=== PATIENT | female | born 1990 | race Caucasian/White ===

== ENCOUNTER 2018-07-10 20:23 | Inpatient (IN) | payer MEDICARE ==
[~2018-07-10] VITALS: Ht 160 cm; Wt 92.8 kg
[2018-07-10] MEDS ORDERED: LEVOFLOXACIN 750MG/DEXTROSE PREMIX BAG 150ML IV ONE (22:00)
[2018-07-10] MEDS ORDERED: PROMETHAZINE HCL (IM) 25 MG/ML VIAL IM ONE (22:00)
[2018-07-10] MEDS ORDERED: MORPHINE SULFATE INJ 4 MG/ML INJ IV ONE (22:00)
[2018-07-10] MEDS ORDERED: SODIUM CHLORIDE 0.9% 1000ML 1,000 ML ONE (22:00)
[2018-07-10] MEDS ORDERED: ALBUTEROL SULF 0.083% NEB SOLN 3 ML NEB NEB ONE (22:15)
[2018-07-10] MEDS ORDERED: MORPHINE SULFATE INJ 10 MG/ML IM ONE (22:45)
--- NOTE | 2018-07-10 23:38 | Diagnostic Imaging Report ---
EXAM: CT Chest WITHOUT contrast 07/10/2018 10:30 PM INDICATION: Shortness of breath, chest pain for one week COMPARISON: None TECHNIQUE: Chest was scanned utilizing a multidetector helical scanner from the lung apex through the level of the adrenal glands without administration of IV contrast. Absence of intravenous contrast decreases sensitivity for detection of lymphadenopathy and vascular pathology. Coronal and sagittal reformations were obtained. Routine protocol was performed. IV CONTRAST: None RADIATION DOSE: Total DLP: 629.63 mGy*cm Estimated effective dose: (DLP x 0.014 x size factor) mSv COMPLICATIONS: None FINDINGS: LINES/ TUBES: None. LUNGS AND AIRWAYS: The lungs are unremarkable. Airways are normal. PLEURA: The pleural spaces are clear. HEART AND MEDIASTINUM: The thyroid gland is normal. No mediastinal, hilar or axillary lymphadenopathy. The heart is normal in size.. There is no pericardial effusion. UPPER ABDOMEN: Limited non-contrast views of the upper abdomen show no abnormality within the visualized liver, spleen, pancreas, or kidneys. The adrenal glands are normal. Cholecystectomy clips are present BONES: The visualized bony thorax is within normal limits. SOFT TISSUES: Unremarkable. IMPRESSION: 1. No evidence of acute thoracic abnormality. 2. The lungs are clear. Signed by: Dr. Sebastián Aguilar M.D. on 07/10/2018 11:34 PM
[2018-07-11] VITALS (8 sets, daily range): BP systolic 98–126; BP diastolic 58–80
--- NOTE | 2018-07-11 00:32 | Diagnostic Imaging Report ---
EXAMINATION: CHEST SINGLE (PORTABLE) INDICATION: Chest pain COMPARISON: CT of the chest without contrast on 07/10/2018 FINDINGS: TUBES and LINES: Interval placement of left subclavian central line catheter with distal catheter tip at the level of the origin of the SVC. LUNGS: Lungs are well inflated. Lungs are clear. There is no evidence of pneumonia or pulmonary edema. PLEURA: No pleural effusion or pneumothorax. HEART AND MEDIASTINUM: The cardiomediastinal silhouette is unremarkable. BONES AND SOFT TISSUES: No acute osseous lesion. Soft tissues are unremarkable. UPPER ABDOMEN: No free air under the diaphragm. IMPRESSION: No acute thoracic abnormality. Signed by: Dr. Sebastián Aguilar M.D. on 07/11/2018 12:28 AM
[2018-07-11] MEDS: LEVOFLOXACIN 750MG/DEXTROSE PREMIX BAG 150ML IV SCH (01:45)
[2018-07-11] MEDS ORDERED: MORPHINE SULFATE 2 MG/ML SYR IV STA (01:46)
[2018-07-11] MEDS: ALBUTEROL SULF 0.083% NEB SOLN 3 ML NEB NEB SCH ×3 (02:30→18:50)
[2018-07-11] MEDS: SODIUM CHLORIDE 0.9% 1000ML 1,000 ML IV SCH ×3 (05:41→17:36)
[2018-07-11] MEDS: NYSTATIN SUSPENSION 5 ML UDC PO SCH ×3 (06:54→18:11)
[2018-07-11] MEDS: MORPHINE SULFATE 2 MG/ML SYR IV PRN ×3 (08:00→15:25)
[2018-07-11] MEDS: FLUCONAZOLE 100 MG TAB PO SCH (09:20)
[2018-07-11] MEDS: MORPHINE SULFATE INJ 4 MG/ML INJ IV PRN ×2 (18:40→21:40)
[2018-07-12] VITALS (8 sets, daily range): BP systolic 101–128; BP diastolic 57–76
[2018-07-12] MEDS: LEVOFLOXACIN 750MG/DEXTROSE PREMIX BAG 150ML IV SCH (00:44)
[2018-07-12] MEDS: MORPHINE SULFATE INJ 4 MG/ML INJ IV PRN ×6 (00:44→16:04)
[2018-07-12] MEDS: ALBUTEROL SULF 0.083% NEB SOLN 3 ML NEB NEB SCH ×2 (01:02→08:30)
[2018-07-12] MEDS: SODIUM CHLORIDE 0.9% 1000ML 1,000 ML IV SCH ×3 (01:36→17:36)
[2018-07-12] MEDS: NYSTATIN SUSPENSION 5 ML UDC PO SCH ×4 (05:47→16:13)
[2018-07-12 06:37] LABS: EOSINOPHILS # (AUTO) 0.3 (0.0-0.4); EOSINOPHILS % 7.8 % (0.0-6.0); HEMATOCRIT 24.3 % (34.2-44.1); LYMPHOCYTES # (AUTO) 0.6 (1.0-3.2); MEAN CORPUSCULAR HGB CONC 32.5 g/dL (31-35); MEAN CORPUSCULAR VOLUME 82.9 fL (81-99); MONOCYTES # (AUTO) 0.4 (0.2-0.8); MONOCYTES % 9.8 % (4.4-11.3); NEUTROPHILS # (AUTO) 2.3 (2.1-6.9); NEUTROPHILS % 64.4 % (38.7-80.0); PLATELET COUNT 144 x10e3/uL (140-360); RED BLOOD COUNT 2.93 x10e6/uL (3.6-5.1); RED CELL DISTRIBUTION WIDTH 15.9 % (11.7-14.4)
[2018-07-12 06:40] LABS: HEMOGLOBIN 7.9 g/dL (12.0-16.0)
[2018-07-12 07:03] LABS: ALANINE AMINOTRANSFERASE 112 IU/L (0-55); ALBUMIN 2.5 g/dL (3.5-5.0); ALBUMIN/GLOBULIN RATIO 0.8 (0.8-2.0); ALKALINE PHOSPHATASE 187 IU/L (40-150); ANION GAP 9.6 mmol/L (8-16); BLOOD UREA NITROGEN 5 mg/dL (7-26); BUN/CREATININE RATIO 8 (6-25); CALCIUM 7.7 mg/dL (8.4-10.2); CARBON DIOXIDE 17 mmol/L (22-29); CHLORIDE 112 mmol/L (98-107); CREATININE, SERUM 0.61 mg/dL (0.57-1.11); EST GLOMERULAR FILTRATION RATE > 60 ML/MIN (60-); GLUCOSE 98 mg/dL (74-118); POTASSIUM 3.6 mmol/L (3.5-5.1); SODIUM 135 mmol/L (136-145)
[2018-07-12] MEDS: FLUCONAZOLE 100 MG TAB PO SCH (08:14)
[2018-07-12] MEDS: PANTOPRAZOLE SOD 40 MG TABEC PO SCH (08:14)
[2018-07-12 09:36] LABS: BASOPHILS % 0.3 % (0.0-1.0); EOSINOPHILS # (AUTO) 0.2 (0.0-0.4); EOSINOPHILS % 7.6 % (0.0-6.0); HEMATOCRIT 24.9 % (34.2-44.1); LYMPHOCYTES # (AUTO) 0.6 (1.0-3.2); LYMPHOCYTES % 19.6 % (18.0-39.1); MEAN CORPUSCULAR HEMOGLOBIN 26.5 pg (28-32); MEAN CORPUSCULAR HGB CONC 32.1 g/dL (31-35); MEAN CORPUSCULAR VOLUME 82.5 fL (81-99); MONOCYTES # (AUTO) 0.1 (0.2-0.8); MONOCYTES % 4.3 % (4.4-11.3); NEUTROPHILS % 66.2 % (38.7-80.0); PLATELET COUNT 143 x10e3/uL (140-360); RED BLOOD COUNT 3.02 x10e6/uL (3.6-5.1); RED CELL DISTRIBUTION WIDTH 15.9 % (11.7-14.4)
--- NOTE | 2018-07-12 09:39 | Diagnostic Imaging Report ---
PROCEDURE:US LIVER COMPARISON:None. INDICATIONS:ELEVATED LFT'S TECHNIQUE: Munoz-scale and color Doppler transverse and longitudinal images of the right upper quadrant of the abdomen were obtained. FINDINGS: Liver: Measures 17.4 cm in right mid-clavicular line. Slight increased echogenicity. No masses. Main portal vein: Measures 1.3 cm with normal forward flow Gallbladder: Removed Common Bile Duct: Measures 0.4 cm Sonographic Winters's sign: Negative Right kidney: Measures 11.6 x 4.6 x 5.1 cm. Normal echogenicity. No solid masses or hydronephrosis. Pancreas: The visualized portions are unremarkable. Limited evaluation of the pancreatic tail. Inferior vena cava: Patent Aorta: Limited evaluation due to overlying bowel gas. Ascites: Minimal amount of fluid within the gallbladder fossa. CONCLUSION: Prominent liver with increased echogenicity. Isaiah Johnson D.O. Dictated by: Isaiah Johnson D.O. on 07/12/2018 at 8:20 Electronically approved by: Isaiah Johnson D.O. on 07/12/2018 at 8:20
[2018-07-12 09:53] LABS: ANION GAP 10.2 mmol/L (8-16); BLOOD UREA NITROGEN < 5 mg/dL (7-26); CALCIUM 7.8 mg/dL (8.4-10.2); CARBON DIOXIDE 16 mmol/L (22-29); CHLORIDE 113 mmol/L (98-107); CREATININE, SERUM 0.63 mg/dL (0.57-1.11); EST GLOMERULAR FILTRATION RATE > 60 ML/MIN (60-); GLUCOSE 140 mg/dL (74-118); MAGNESIUM 1.5 MG/DL (1.3-2.1); POTASSIUM 3.2 mmol/L (3.5-5.1); SODIUM 136 mmol/L (136-145)
[2018-07-12 09:55] LABS: BUN/CREATININE RATIO 8 (6-25)
[2018-07-12] MEDS ORDERED: BISACODYL 5 MG TAB EC PO NR (14:00)
[2018-07-12] MEDS: LEVALBUTEROL HCL SOLN NEBU 1.25 MG/3 ML NEB INH SCH ×2 (14:00→19:25)
[2018-07-12] MEDS ORDERED: POTASSIUM CHLORIDE 20 MEQ TAB CR PO ONE (20:00)
[2018-07-12] MEDS: DOCUSATE SODIUM 100 MG CAP PO SCH (21:00)
--- NOTE | 2018-07-12 21:00 | Consultation ---
DATE OF CONSULTATION: REASON FOR CONSULTATION: HIV, recommendation of antibiotic, elevated liver enzymes. HISTORY: This patient who is very pleasant 28-year-old female who has HIV for the last 9 to 10 years. She is followed by [facility]. She is taking Stribild now. The patient for last 4 months. Also, she is taking Bactrim and azithromycin. Apparently, she had PCP pneumonia couple of years ago. She is followed as mentioned above with [facility]. The patient was doing well until recently when she started to have chest pain, substernal, not feeling well. The patient has had some cough, was not doing well. Patient came to the emergency room to be evaluated. Patient was admitted. Infectious disease was consulted. PAST MEDICAL HISTORY: HIV, obesity, PCP pneumonia. PAST SURGICAL HISTORY: She denies. ALLERGIES: NKA. SOCIAL HISTORY: There is no smoking, drug abuse, alcohol abuse. FAMILY HISTORY: Denies. REVIEW OF SYSTEMS: HEENT: Negative. PULMONARY: Some dry cough, minimum. : Negative. GI: Negative. SKIN: There is no rash. JOINT: Negative. LABORATORY DATA: Blood culture is negative. Her white count is 3.01, hemoglobin 8.0, hematocrit of 24, platelets 143,000. Sodium 135, potassium 3.6, creatinine of 0.61. AST of 136, ALT 112, amylase 42. She had CT of the chest which was negative. She had liver ultrasound which was unremarkable. PHYSICAL EXAMINATION: GENERAL: She is currently alert and oriented, does not seem to be in acute distress. VITALS: Stable, afebrile. HEENT: Normocephalic. NECK: Supple. CHEST: Clear bilaterally. HEART: S1 and S2, no murmur. ABDOMEN: Soft, obese. No tenderness. EXTREMITIES: No edema. SKIN: No rash. IMPRESSION: Elevated liver enzymes. Hepatitis, rule out viral. Patient does have cat. Will check for Cytomegalovirus, Praveen-[place] virus, toxoplasmosis, hepatitis A, B, and C, rapid plasma reagin. Will obtain CD4 cell count. Continue her antiretroviral medication. Discussed with the patient at length. Will follow with you. Job#: [id number]
[2018-07-12] MEDS: TRAMADOL HCL 50 MG TAB PO PRN (21:40)
[2018-07-12] MEDS: ACETAMINOPHEN 325 MG TAB PO PRN (21:41)
[2018-07-13] VITALS (8 sets, daily range): BP systolic 110–151; BP diastolic 56–70
[2018-07-13] MEDS: LEVALBUTEROL HCL SOLN NEBU 1.25 MG/3 ML NEB INH SCH ×4 (01:07→19:40)
[2018-07-13] MEDS: SODIUM CHLORIDE 0.9% 1000ML 1,000 ML IV SCH (01:36)
[2018-07-13] MEDS: TRAMADOL HCL 50 MG TAB PO PRN ×3 (04:50→17:55)
[2018-07-13 05:20] LABS: BASOPHILS % 0.4 % (0.0-1.0); EOSINOPHILS # (AUTO) 0.3 (0.0-0.4); EOSINOPHILS % 10.9 % (0.0-6.0); HEMATOCRIT 23.6 % (34.2-44.1); HEMOGLOBIN 7.6 g/dL (12.0-16.0); LYMPHOCYTES # (AUTO) 0.5 (1.0-3.2); LYMPHOCYTES % 15.8 % (18.0-39.1); MEAN CORPUSCULAR HGB CONC 32.2 g/dL (31-35); MEAN CORPUSCULAR VOLUME 83.7 fL (81-99); MONOCYTES # (AUTO) 0.2 (0.2-0.8); MONOCYTES % 7.7 % (4.4-11.3); NEUTROPHILS # (AUTO) 1.8 (2.1-6.9); NEUTROPHILS % 63.4 % (38.7-80.0); PLATELET COUNT 153 x10e3/uL (140-360); RED BLOOD COUNT 2.82 x10e6/uL (3.6-5.1)
[2018-07-13 05:35] LABS: ANION GAP 11.5 mmol/L (8-16); BLOOD UREA NITROGEN < 5 mg/dL (7-26); CALCIUM 8.2 mg/dL (8.4-10.2); CARBON DIOXIDE 17 mmol/L (22-29); CHLORIDE 115 mmol/L (98-107); CREATININE, SERUM 0.59 mg/dL (0.57-1.11); EST GLOMERULAR FILTRATION RATE > 60 ML/MIN (60-); GLUCOSE 106 mg/dL (74-118); POTASSIUM 3.5 mmol/L (3.5-5.1); SODIUM 140 mmol/L (136-145)
[2018-07-13 05:36] LABS: BUN/CREATININE RATIO 8 (6-25)
[2018-07-13] MEDS: NYSTATIN SUSPENSION 5 ML UDC PO SCH ×5 (06:00→23:02)
[2018-07-13] MEDS: PANTOPRAZOLE SOD 40 MG TABEC PO SCH (08:17)
[2018-07-13] MEDS: ONDANSETRON HCL 4 MG ORAL DISINTEGRATING TAB PO PRN (18:18)
[2018-07-13] MEDS: DOCUSATE SODIUM 100 MG CAP PO SCH (20:51)
[2018-07-13] MEDS: ACETAMINOPHEN 325 MG TAB PO PRN (20:52)
[2018-07-14] VITALS: BP 111/67
[2018-07-14] MEDS: LEVALBUTEROL HCL SOLN NEBU 1.25 MG/3 ML NEB INH SCH ×4 (00:47→19:38)
[2018-07-14 04:00] VITALS: BP 105/61
[2018-07-14] MEDS: NYSTATIN SUSPENSION 5 ML UDC PO SCH ×4 (06:00→23:26)
[2018-07-14] MEDS: TRAMADOL HCL 50 MG TAB PO PRN ×3 (06:24→20:38)
[2018-07-14 06:46] LABS: BASOPHILS % 0.3 % (0.0-1.0); EOSINOPHILS # (AUTO) 0.4 (0.0-0.4); EOSINOPHILS % 12.1 % (0.0-6.0); HEMOGLOBIN 8.1 g/dL (12.0-16.0); LYMPHOCYTES # (AUTO) 0.4 (1.0-3.2); LYMPHOCYTES % 12.5 % (18.0-39.1); MEAN CORPUSCULAR HEMOGLOBIN 26.9 pg (28-32); MEAN CORPUSCULAR HGB CONC 32.4 g/dL (31-35); MEAN CORPUSCULAR VOLUME 83.1 fL (81-99); MONOCYTES # (AUTO) 0.3 (0.2-0.8); MONOCYTES % 8.2 % (4.4-11.3); NEUTROPHILS % 65.6 % (38.7-80.0); PLATELET COUNT 161 x10e3/uL (140-360); RED BLOOD COUNT 3.01 x10e6/uL (3.6-5.1); RED CELL DISTRIBUTION WIDTH 16.3 % (11.7-14.4)
[2018-07-14 06:47] LABS: ALANINE AMINOTRANSFERASE 88 IU/L (0-55); ALBUMIN 2.9 g/dL (3.5-5.0); ALBUMIN/GLOBULIN RATIO 0.9 (0.8-2.0); ALKALINE PHOSPHATASE 185 IU/L (40-150); ANION GAP 11.5 mmol/L (8-16); BLOOD UREA NITROGEN 5 mg/dL (7-26); BUN/CREATININE RATIO 7 (6-25); CARBON DIOXIDE 20 mmol/L (22-29); CHLORIDE 111 mmol/L (98-107); CREATININE, SERUM 0.69 mg/dL (0.57-1.11); EST GLOMERULAR FILTRATION RATE > 60 ML/MIN (60-); GLUCOSE 97 mg/dL (74-118); POTASSIUM 3.5 mmol/L (3.5-5.1); SODIUM 139 mmol/L (136-145)
[2018-07-14] MEDS ORDERED: POTASSIUM CHLORIDE 20 MEQ TAB CR PO STA (07:20)
[2018-07-14] MEDS ORDERED: POTASSIUM CHLORIDE 20 MEQ TAB CR PO ONE (07:35)
[2018-07-14] MEDS: PANTOPRAZOLE SOD 40 MG TABEC PO SCH (07:56)
[2018-07-14] MEDS: POLYETHYLENE GLYCOL 3350 17 GM PACK PO SCH (07:56)
[2018-07-14 08:00] VITALS: BP 144/77
[2018-07-14] MEDS ORDERED: DONNATAL/LIDOCAINE/MAALOX 30 ML SUSP PO PRN ×2 (08:00→10:30)
[2018-07-14] MEDS ORDERED: FLUCONAZOLE 100 MG TAB PO SCH (09:00)
[2018-07-14] MEDS ORDERED: FLUCONAZOLE 200 MG/100 ML 100 ML IV ONE ×2 (09:41→10:07)
[2018-07-14] MEDS: FLUCONAZOLE 400MG/200ML BAG 200 ML IV SCH (10:07)
[2018-07-14 12:00] VITALS: BP 138/84
[2018-07-14] MEDS: ONDANSETRON HCL 4 MG ORAL DISINTEGRATING TAB PO PRN (15:03)
[2018-07-14 16:00] VITALS: BP 127/98
[2018-07-14 20:00] VITALS: BP 108/55
[2018-07-14] MEDS: DOCUSATE SODIUM 100 MG CAP PO SCH (20:38)
[2018-07-14] MEDS ORDERED: BISACODYL 10 MG SUPP PR ONE (22:45)
[2018-07-15] VITALS: BP 108/64
[2018-07-15] MEDS: ACETAMINOPHEN 325 MG TAB PO PRN (00:29)
[2018-07-15 04:00] VITALS: BP 108/69
[2018-07-15 05:39] LABS: BASOPHILS % 0.3 % (0.0-1.0); EOSINOPHILS # (AUTO) 0.5 (0.0-0.4); HEMATOCRIT 26.5 % (34.2-44.1); HEMOGLOBIN 8.5 g/dL (12.0-16.0); LYMPHOCYTES # (AUTO) 0.5 (1.0-3.2); LYMPHOCYTES % 15.3 % (18.0-39.1); MEAN CORPUSCULAR HEMOGLOBIN 26.9 pg (28-32); MEAN CORPUSCULAR HGB CONC 32.1 g/dL (31-35); MEAN CORPUSCULAR VOLUME 83.9 fL (81-99); MONOCYTES # (AUTO) 0.3 (0.2-0.8); MONOCYTES % 9.3 % (4.4-11.3); NEUTROPHILS # (AUTO) 1.9 (2.1-6.9); NEUTROPHILS % 59.5 % (38.7-80.0); PLATELET COUNT 184 x10e3/uL (140-360); RED BLOOD COUNT 3.16 x10e6/uL (3.6-5.1); RED CELL DISTRIBUTION WIDTH 16.3 % (11.7-14.4)
[2018-07-15] MEDS: NYSTATIN SUSPENSION 5 ML UDC PO SCH ×3 (05:40→18:00)
[2018-07-15] MEDS: ONDANSETRON HCL 4 MG ORAL DISINTEGRATING TAB PO PRN (05:40)
[2018-07-15 05:59] LABS: ANION GAP 14.6 mmol/L (8-16); BLOOD UREA NITROGEN 5 mg/dL (7-26); BUN/CREATININE RATIO 8 (6-25); CALCIUM 8.8 mg/dL (8.4-10.2); CARBON DIOXIDE 18 mmol/L (22-29); CHLORIDE 108 mmol/L (98-107); CREATININE, SERUM 0.66 mg/dL (0.57-1.11); EST GLOMERULAR FILTRATION RATE > 60 ML/MIN (60-); GLUCOSE 88 mg/dL (74-118); POTASSIUM 3.6 mmol/L (3.5-5.1); SODIUM 137 mmol/L (136-145)
[2018-07-15] MEDS: LEVALBUTEROL HCL SOLN NEBU 1.25 MG/3 ML NEB INH SCH ×4 (07:00→19:50)
[2018-07-15] MEDS: PANTOPRAZOLE SOD 40 MG TABEC PO SCH (07:30)
[2018-07-15 07:48] VITALS: BP 115/64
[2018-07-15] MEDS: POLYETHYLENE GLYCOL 3350 17 GM PACK PO SCH (09:00)
[2018-07-15] MEDS: FLUCONAZOLE 400MG/200ML BAG 200 ML IV SCH (10:00)
[2018-07-15 11:13] VITALS: BP 123/66
[2018-07-15] MEDS: PANTOPRAZOL 40MG/SOD CHL 0.9% 50 ML IV SCH ×2 (13:30→21:25)
[2018-07-15] MEDS ORDERED: PANTOPRAZOLE 40 MG 10ML VIAL IV NR (13:30)
--- NOTE | 2018-07-15 13:37 | Operative Report ---
DATE OF PROCEDURE: REFERRING PHYSICIAN: Dr. Raul Fernandez. PROCEDURE PERFORMED: Esophagogastroduodenoscopy. INDICATIONS FOR ESOPHAGOGASTRODUODENOSCOPY: Upper abdominal pain, nausea and vomiting. MEDICATION: Patient was done under MAC. Please see anesthesiologist's note. PROCEDURE: With the patient in the left lateral decubitus position, the flexible fiberoptic Olympus gastroscope was introduced into the esophagus under direct visualization without any difficulty. The distal esophageal mucosa appeared ulcerated, and biopsies were obtained. The scope was then advanced with ease into the stomach. Mucosa overlying the antrum and the body revealed some diffuse erythema and low-grade edema, and biopsies were obtained and sent to stain for H. pylori. Pylorus appeared to be of normal contour and shape, was intubated with ease, and the scope was advanced all the way to the 2nd portion of the duodenum. The scope was then withdrawn slowly. Mucosa overlying the proximal 2nd portion and the duodenal bulb appeared to be within normal limits. The scope was then withdrawn back into the stomach and retroflexed, and the mucosa overlying the fundus and the cardia appeared to be within normal limits. The scope was then straightened out. The stomach was decompressed. The scope was subsequently withdrawn. Patient tolerated procedure well. IMPRESSION: 1. Ulcerated distal esophagus. Biopsies obtained. 2. Gastritis biopsied. Biopsies sent to stain for H. pylori. PLAN: Follow up histology. Initiate PPI drip. Start Reglan 10 mg IV piggyback every 6 hours. Job#: [id number] EV cc:RAUL FERNANDEZ MD
[2018-07-15] MEDS ORDERED: PANTOPRAZOLE 40 MG 10ML VIAL ONE (14:22)
[2018-07-15] MEDS ORDERED: FENTANYL CITRATE/PF 100MCG/2 ML INJ ONE ×2 (15:17→17:45)
[2018-07-15 15:57] VITALS: BP 119/64
[2018-07-15] MEDS ORDERED: MIDAZOLAM HCL 2 MG/2 ML VIAL ONE (17:45)
[2018-07-15] MEDS: METOCLOPRAMIDE HCL 10 MG/2ML VIAL IV SCH (18:00)
[2018-07-15] MEDS: TRAMADOL HCL 50 MG TAB PO PRN (18:38)
[2018-07-15 19:30] VITALS: BP 134/60
[2018-07-15] MEDS: DOCUSATE SODIUM 100 MG CAP PO SCH (21:00)
[2018-07-16] MEDS: METOCLOPRAMIDE HCL 10 MG/2ML VIAL IV SCH ×2 (00:18→06:01)
[2018-07-16] MEDS: NYSTATIN SUSPENSION 5 ML UDC PO SCH ×2 (00:18→06:01)
[2018-07-16 00:30] VITALS: BP 117/54
[2018-07-16] MEDS: LEVALBUTEROL HCL SOLN NEBU 1.25 MG/3 ML NEB INH SCH ×2 (01:45→07:00)
[2018-07-16] MEDS: PANTOPRAZOL 40MG/SOD CHL 0.9% 50 ML IV SCH ×2 (02:25→04:30)
[2018-07-16 04:30] VITALS: BP 104/55
[2018-07-16 04:47] VITALS: BP 117/54
[2018-07-16 08:00] VITALS: BP 100/61
== END 2018-07-16 09:45 | disposition home or self-care (01) | DRG 975 ==
LOC: FSED 20:23 → MED/SURG3 07-11 03:42
PROVIDERS: ADMIT Internal Medicine; ATTEND Internal Medicine
PROC: 0DB78ZX Excision of Stomach, Pylorus, Via Natural or Artificial Opening Endoscopic, Diagnostic (ICD-10-PCS; 2018-07-15)
PROC: 0DB58ZX Excision of Esophagus, Via Natural or Artificial Opening Endoscopic, Diagnostic (ICD-10-PCS; principal; 2018-07-15 12:55)
DX: B20 Human immunodeficiency virus [HIV] disease (principal); B37.81 Candidal esophagitis; J45.41 Moderate persistent asthma with (acute) exacerbation; J18.9 Pneumonia, unspecified organism; B59 Pneumocystosis; B37.0 Candidal stomatitis; K75.9 Inflammatory liver disease, unspecified; E66.9 Obesity, unspecified; Z68.36 Body mass index [BMI] 36.0-36.9, adult; K76.0 Fatty (change of) liver, not elsewhere classified; D72.819 Decreased white blood cell count, unspecified
CPT/HCPCS: 36415; 43239; 71045; 71250; 76705; 80048; 80053; 82150; 83735; 84702; 85025; 86361; 86592; 86644; 86645; 86663; 86664; 86665; 86777; 86778; 87040; 87070; 87205; 88305; 88312; 94640; 96361; 99284; J1450; J2250; J2270; J2550; J2765; J7030

== ENCOUNTER 2019-01-23 21:15 | Emergency (ER) | payer MEDICARE ==
[~2019-01-23] VITALS: Ht 160 cm; Wt 91.2 kg
[~2019-01-23 21:15] MED LIST: PANTOPRAZOLE SO40 MG PO; PHENERGAN SUPP25 MG RC; ZOFRAN ODT4 MG PO
--- OUTSIDE RECORDS SUMMARY | 2019-01-23 21:18 | XMS REPORT ---
Author Author Admin, [place] Organization [facility] [place] [address] [place] [address] Phone Allergies, Adverse Reactions, Alerts Allergy Name Reaction Description Start Date Severity Status Provider HYDROCODONE Itching, SOB, Vomittng Moderate Active James LANDIN Conditions or Problems Problem Name Problem Code Onset Date Status Entry Date Provider Comment Standard Description Annotate DEPRESSIVE DISORDER, UNSPECIFIED Active Tesha Dyer [facility] Immunization update V15.9 Active Josette Martin MD Unspecified personal history presenting hazards to health Vitamin D deficiency 268.9 Active Josette Martin MD Unspecified vitamin D deficiency 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 Daren Adam [employer] Pneumocystosis Vaccination for HPV V04.89 Active James LANDIN Need for prophylactic vaccination and inoculation against other viral diseases Completed 2007 HSV 054.9 Active James LANDIN Herpes simplex without mention of complication AIDS 042 Active James LANDIN Human immunodeficiency virus [HIV] disease 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 James LANDIN Borderline personality disorder Obesity 278.00 Active James KUHNP Obesity, unspecified OVER WEIGHT 278.00 Active James LANDIN Obesity, unspecified SCHIZOAFFECTIVE DISORDER 295.70 Active James LANDIN Schizoaffective disorder, unspecified PASSIVE SMOKE EXPOSURE E869.4 Active James LANDIN Accidental poisoning from second-hand tobacco smoke TOBACCO USE 305.1 Active James LANDIN Tobacco use disorder Disturbance, visual NOS 368.10 Inactive Dk Howard MD Subjective visual disturbance, unspecified Disturbance, visual NOS ICD-368.10 Inactive Dk Howard MD 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 Dk Howard MD COUGH ICD-786.2 Inactive Daren Adam [employer]ATION WORK[employer] OVERWEIGHT 278.02 Inactive James LANDIN Overweight THRUSH ICD-112.0 Inactive Daren Adam [employer]ATION WORKER[employer] Rule out CMV RETINITIS Resolved Dk Howard MD Chorioretinitis, unspecified COUGH 786.2 Resolved Daren Adam [employer]ATION WORKER-[employer] Cough THRUSH 112.0 Resolved Daren Adam NP-C Candidiasis of mouth Medication List Medication Instructions Start Date Stop Date Generic Name NDC Status Provider Patient Instruction DOXYCYCLINE HYCLATE 100 MG ORAL CAPSULE 1 by mouth twice a day for 14 days DOXYCYCLINE HYCLATE 84562222014 Active James KUHNP Active HYDROCORTISONE 2.5 % EXTERNAL CREAM apply to affected area twice a day HYDROCORTISONE 65754821669 Active James Guzman [facility] Active PROAIR HFA 108 (90 Base) MCG/ACT INHALATION AEROSOL SOLUTION 2 puffs every 4 - 6 hours as needed ALBUTEROL SULFATE 02228993487 Active James KUHNP Active AZITHROMYCIN 600 MG ORAL TABLET Take two tablets by mouth once weeky AZITHROMYCIN 38352107409 Active Josette Martin MD Active VALTREX 1 GM ORAL TABLET 1 pill daily for suppression of herpes VALACYCLOVIR HCL 77023094253 Active James KUHNP Active NICOTINE 21-14-7 MG/24HR TRANSDERMAL KIT NICOTINE 33962253309 Active Marli Marroquin Active CLOTRIMAZOLE-BETAMETHASONE 1-0.05 % EXTERNAL CREAM apply 2x per day for 2 weeks CLOTRIMAZOLE-BETAMETHASONE 45157754581 Active James KUHNP Active BACTRIM DS 800-160 MG ORAL TABLET Take one tablet by mouth once daily TRIMETHOPRIM-SULFAMETHOXAZOLE 99329294339 Active Josette Martin MD Active NEXIUM 40 MG ORAL CAPSULE DELAYED RELEASE 1 by mouth daily ESOMEPRAZOLE MAGNESIUM 97994995312 Active James Garciatrish [facility] Active STRIBILD 692-107-092-300 MG ORAL TABLET 1 By Mouth once a day with food [id number]-TENOF 28855136941 Active James Garciatrish [facility] Active BACTRIM DS 800-160 MG ORAL TABLET Take one tablet by mouth twice daily BACTRIM DS 800-160 MG ORAL TABLET 582883 TRIMETHOPRIM-SULFAMETHOXAZOLE Inactive VITAMIN D (ERGOCALCIFEROL) 30794 UNIT ORAL CAPSULE One tablet by mouth once per week for 12 weeks VITAMIN D (ERGOCALCIFEROL) 30546 UNIT ORAL CAPSULE 0582156 ERGOCALCIFEROL Inactive VALTREX 500 MG ORAL TABLET 1 pill By Mouth Every day (after finishing 1g Twice a Day dose) VALTREX 500 MG ORAL TABLET 106434 VALACYCLOVIR HCL Inactive GABAPENTIN 300 MG ORAL CAPSULE 1-2 By Mouth at bedtime As Needed GABAPENTIN 300 MG ORAL CAPSULE 764719 GABAPENTIN Inactive GEODON 40 MG ORAL CAPSULE 1 By Mouth Twice a Day GEODON 40 MG ORAL CAPSULE 476739 ZIPRASIDONE HCL Inactive LEXAPRO 10 MG ORAL TABLET 1/2 By Mouth Every Day X 1 week then 1 By Mouth Every Day LEXAPRO 10 MG ORAL TABLET 426028 ESCITALOPRAM OXALATE Inactive VALTREX 1 GM ORAL TABLET 1 by mouth Twice a Day for 10 days VALTREX 1 GM ORAL TABLET 725854 VALACYCLOVIR HCL Inactive CYCLOBENZAPRINE HCL 10 MG ORAL TABLET 1/2 or 1 By Mouth three times a day as needed for muscle spasm CYCLOBENZAPRINE HCL 10 MG ORAL TABLET 411907 CYCLOBENZAPRINE HCL Inactive FLUCONAZOLE 150 MG ORAL TABLET One tab By Mouth Every Day FLUCONAZOLE 150 MG ORAL TABLET 183905 FLUCONAZOLE Inactive AZITHROMYCIN 600 MG ORAL TABLET 2 tabs by mouth once per week AZITHROMYCIN 600 MG ORAL TABLET 293116 AZITHROMYCIN Inactive ACYCLOVIR 800 MG ORAL TABLET Take one tablet by mouth every 12 hours ACYCLOVIR 84444998790 No Longer Active Daren BURT Active BACTRIM DS 800-160 MG ORAL TABLET Take one tablet by mouth twice daily TRIMETHOPRIM-SULFAMETHOXAZOLE 95422629573 No Longer Active James LANDIN Active VITAMIN D (ERGOCALCIFEROL) 32733 UNIT ORAL CAPSULE One tablet by mouth once per week for 12 weeks ERGOCALCIFEROL 33023157190 No Longer Active James LANDIN Active VALTREX 500 MG ORAL TABLET 1 pill By Mouth Every day (after finishing 1g Twice a Day dose) VALACYCLOVIR HCL 42869048565 No Longer Active James LANDIN Active GABAPENTIN 300 MG ORAL CAPSULE 1-2 By Mouth at bedtime As Needed GABAPENTIN 91426174772 No Longer Active James LANDIN Active GEODON 40 MG ORAL CAPSULE 1 By Mouth Twice a Day ZIPRASIDONE HCL 42233604436 No Longer Active James LANDIN Active LEXAPRO 10 MG ORAL TABLET 1/2 By Mouth Every Day X 1 week then 1 By Mouth Every Day ESCITALOPRAM OXALATE 43714635413 No Longer Active James KUHNP Active VALTREX 1 GM ORAL TABLET 1 by mouth Twice a Day for 10 days VALACYCLOVIR HCL 95681010007 No Longer Active Daren BURT Active CYCLOBENZAPRINE HCL 10 MG ORAL TABLET 1/2 or 1 By Mouth three times a day as needed for muscle spasm CYCLOBENZAPRINE HCL 94534820066 No Longer [facility] FLU[facility]LE 150 MG ORAL TABLET One tab By Mouth Every Day FLUCONAZOLE 08619477984 No Longer [facility] AZITHROMYCIN 600 MG ORAL TABLET 2 tabs by mouth once per week AZITHROMYCIN 73136501328 No Longer [facility] Immunizations Vaccine Administration Date Value Standard Description influenza immunization (Flu Vax) has been administered given influenza virus vaccine, unspecified formulation influenza immunization (Flu Vax) has been administered given influenza virus vaccine, unspecified formulation pneumococcal immunization administered given elsewhere pneumococcal polysaccharide vaccine, 23 valent Diagnostic Results Date Name Value Unit Range Description Lab Report: CD4/CD8 Ratio Profile, Comp. Metabolic Panel (14), Lipid Tello ... - Chemistry thyroid stimulating hormone, serum 2.240 u[iU]/mL 0.450-4.500 Lab Report: CD4/CD8 Ratio Profile, Immature Cells, CD4/CD8 Ratio Profile ... - Chemistry very low density lipoproteins 65 mg/dL 5-40 Lab Report: CD4/CD8 Ratio Profile, Comp. Metabolic Panel (14), Lipid Tello ... - Chemistry hepatitis B surface antigen Negative Negative Lab Report: RNA, Real Time PCR (Graph) - Chemistry HIV-1 RNA (log 10) 2.279 osg36jdsy/mL Lab Report: CD4/CD8 Ratio Profile, Comp. Metabolic Panel (14), RNA, Real ... - Chemistry chloride, serum 100 mmol/L 96-106 Lab Report: CD4/CD8 Ratio Profile, Comp. Metabolic Panel (14), Lipid Tello ... - Microbiology hepatitis A antibody, total Positive Negative Lab Report: CD4/CD8 Ratio Profile, Comp. Metabolic Panel (14), RNA, Real ... - Chemistry urea nitrogen, blood 9 mg/dL 6-20 Lab Report: QuantiFERON TB Gold (In Tube), QuantiFERON In Tube - Hematology Quantiferon Gold TB blood test for tuberculosis screening Negative Negative Lab Report: CD4/CD8 Ratio Profile, Comp. Metabolic Panel (14), RNA, Real ... - Hematology mean corpuscular hemoglobin concentration, RBC 34.8 G/DL % 31.5-35.7 erythrocyte (RBC) count 4.34 X10E6/UL 10*6/mm3 3.77-5.28 Lab Report: CD4/CD8 Ratio Profile, Comp. Metabolic Panel (14), Lipid Tello ... - Serology hepatitis C antibody, serum <0.1 0.0-0.9 Lab Report: CD4/CD8 Ratio Profile, Comp. Metabolic Panel (14), RNA, Real ... - Chemistry absolute CD8 1450 162-344 8445/12/21 Absolute Neutrophils 5.5 X10E3/UL 10*3/uL 1.4-7.0 Lab Report: CD4/CD8 Ratio Profile, Immature Cells, CD4/CD8 Ratio Profile ... - Chemistry LDL cholesterol, serum 152 mg/dL 0-99 Lab Report: CD4/CD8 Ratio Profile, Comp. Metabolic Panel (14), RNA, Real ... - Chemistry urea nitrogen/creatinine ratio, serum 12 8-20 Internal Correspondence: Pre-Visit Planning: F/U 12/30/16@1PM-confirmed - CC care cylinder steamer #1, name [facility]-Matilde Rosas MD / ROSE Prasad FNP / ROSE Meraz FNP / ROSE Queen MD / Tiffany Toney MA Lab Report: CD4/CD8 Ratio Profile, Comp. Metabolic Panel (14), RNA, Real ... - Hematology mean corpuscular volume, RBC 84 fL 79-97 Lab Report: CD4/CD8 Ratio Profile, Immature Cells, CD4/CD8 Ratio Profile ... - Chemistry HDL cholesterol, serum 49 mg/dL >39 Lab Report: CD4/CD8 Ratio Profile, Comp. Metabolic Panel (14), RNA, Real ... - Hematology monocytes as percent of blood leukocytes 10 % Lab Report: CD4/CD8 Ratio Profile, Comp. Metabolic Panel (14), RNA, Real ... - Chemistry creatinine, serum 0.78 mg/dL 0.57-1.00 albumin/globulin ratio, serum 1.3 1.1-2.5 Lab Report: CD4/CD8 Ratio Profile, Immature Cells, CD4/CD8 Ratio Profile ... - Chemistry cholesterol, serum 266 mg/dL 100-199 Lab Report: CD4/CD8 Ratio Profile, Comp. Metabolic Panel (14), RNA, Real ... - Chemistry bilirubin, serum, total 0.8 mg/dL 0.0-1.2 Lab Report: CD4/CD8 Ratio Profile, Comp. Metabolic Panel (14), RNA, Real ... - Hematology Eosinophil Absolute Count 0.4 X10E3/UL 10*3/uL 0.0-0.4 Lab Report: CD4/CD8 Ratio Profile, Comp. Metabolic Panel (14), RNA, Real ... - Chemistry aspartate aminotransferase (SGOT), serum 40 U/L 0-40 Lab Report: CD4/CD8 Ratio Profile, Comp. Metabolic Panel (14), RNA, Real ... - Hematology red blood cell distribution width 14.9 % 12.3-15.4 leukocyte count, blood 8.8 X10E3/UL 10*3/mm3 3.4-10.8 Lab Report: CD4/CD8 Ratio Profile, Comp. Metabolic Panel (14), RNA, Real ... - Chemistry potassium, serum 4.1 mmol/L 3.5-5.2 immature granulocytes, percentage of total cells, blood 0 % albumin, serum 4.4 g/dL 3.5-5.5 Lab Report: CD4/CD8 Ratio Profile, Comp. Metabolic Panel (14), RNA, Real ... - Hematology lymphocyte count, blood, automated 2.0 X10E3/UL 10*3/mm3 0.7-3.1 hematocrit, blood 36.5 % 34.0-46.6 Lab Report: CD4/CD8 Ratio Profile, Comp. Metabolic Panel (14), RNA, Real ... - Chemistry sodium, serum 137 mmol/L 134-144 Lab Report: CD4/CD8 Ratio Profile, Comp. Metabolic Panel (14), Lipid Tello ... - Serology toxoplasma gondii antibody, IgG <3.0 0.0-5.9 Lab Report: CD4/CD8 Ratio Profile, Comp. Metabolic Panel (14), RNA, Real ... - Hematology neutrophils as percent of blood leukocytes 63 % basophils as percent of blood leukocytes 0 % Internal Correspondence: Pre-Visit Planning 03/01/2015 @2:45pm LVM - Other List of providers caring for patient Teressa Rosas MD, Ramos Mims MD, eWndy Aguirre MD, Noa Lundberg CARTON MACHINE OPERATOR, James Guzman CARTON MACHINE OPERATOR, Daren Adam TE[employer] PLANTATION WORKER-C, Magy Henry MA, Martin Mace MA, Dorian Esteban MA, Mariama Gongora MA, Tonya Laws MA, Beni Raman MA, Tiffany Rodriguez MA, Tresa William CTA, Otilia Melton CTA. Lab Report: CD4/CD8 Ratio Profile, Comp. Metabolic Panel (14), RNA, Real ... - Serology HIV-1RNA, serum, by PCR, quantitative 60 {Copies}/mL Lab Report: CD4/CD8 Ratio Profile, Comp. Metabolic Panel (14), Lipid Tello ... - Serology rapid plasma reagin antibody, serum Non Reactive Non Reactive Lab Report: CD4/CD8 Ratio Profile, Comp. Metabolic Panel (14), RNA, Real ... - Chemistry CD4/CD8 ratio 0.10 0.92-3.72 carbon dioxide, venous blood 17 mmol/L 18-29 Lab Report: CD4/CD8 Ratio Profile, Comp. Metabolic Panel (14), Lipid Tello ... - Serology hepatitis B core antibody, total Negative Negative Lab Report: CD4/CD8 Ratio Profile, Immature Cells, CD4/CD8 Ratio Profile ... - Chemistry triglyceride, serum, fasting 327 mg/dL 0-149 Lab Report: CD4/CD8 Ratio Profile, Comp. Metabolic Panel (14), RNA, Real ... - Chemistry calcium, serum 9.3 mg/dL 8.7-10.2 alanine aminotransferase (SGPT), serum 35 U/L 0-32 Lab Report: CD4/CD8 Ratio Profile, Comp. Metabolic Panel (14), RNA, Real ... - Hematology mean corpuscular hemoglobin, RBC 29.3 pg 26.6-33.0 Lab Report: CD4/CD8 Ratio Profile, Comp. Metabolic Panel (14), RNA, Real ... - Chemistry protein, total, serum 7.8 g/dL 6.0-8.5 alkaline phosphatase, serum 64 U/L 39-117 Lab Report: CD4/CD8 Ratio Profile, Comp. Metabolic Panel (14), RNA, Real ... - Hematology T-helper cells (CD4) as percent of blood lymphocytes 7.4 % 30.8-58.5 hemoglobin, blood 12.7 g/dL 11.1-15.9 T-suppressor cells (CD8) as percent of blood lymphocytes 72.5 % 12.0-35.5 lymphocytes as percent of blood leukocytes 22 % Lab Report: CD4/CD8 Ratio Profile, Comp. Metabolic Panel (14), Lipid Tello ... - Chemistry hemoglobin A1C, blood, as % of total hemoglobin 5.6 % 4.8-5.6 Lab Report: CD4/CD8 Ratio Profile, Comp. Metabolic Panel (14), RNA, Real ... - Genetics/fertility eGFR if 120 mL/min/1.73m2 >59 Lab Report: CD4/CD8 Ratio Profile, Comp. Metabolic Panel (14), RNA, Real ... - Hematology basophil count, absolute 0.0 x10E3/uL 0.0-0.2 Lab Report: CD4/CD8 Ratio Profile, Comp. Metabolic Panel (14), RNA, Real ... - Chemistry globulin, serum 3.4 1.5-4.5 Estimated Glomerular Filtration Rate (calc) 105 mL/min/1.73m2 >59 Lab Report: CD4/CD8 Ratio Profile, Immature Cells, CD4/CD8 Ratio Profile ... - Chemistry vitamin D 25-hydroxy, serum 16.7 ng/mL 30.0-100.0 Lab Report: CD4/CD8 Ratio Profile, Comp. Metabolic Panel (14), Lipid Tello ... - Serology hepatitis B surface antibody Reactive Lab Report: CD4/CD8 Ratio Profile, Comp. Metabolic Panel (14), RNA, Real ... - Hematology eosinophils as percent of blood leukocytes 5 % Lab Report: CD4/CD8 Ratio Profile, Comp. Metabolic Panel (14), RNA, Real ... - Chemistry blood glucose, random 74 mg/dL 65-99 Lab Report: CD4/CD8 Ratio Profile, Comp. Metabolic Panel (14), RNA, Real ... 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 CPT-07824 [facility] 07:54:44 [employer]NA[employer] INSTALLER Est Patient Exp Problem - 81625 James Guzman [facility] CPT-59970 [facility] 15:22:19 CDT Est Patient Detailed - 04974 Josette Martin MD CPT-54680 [facility] 15:25:37 CDT Est Patient Exp Problem - 77483 Daren BURT CPT-78582 [facility] 15:30:53 [employer] INSTALLER Est Patient Exp Problem - 75264 James Guzman [facility] CPT-44844 [facility] 12:07:43 CDT Est Patient Exp Problem - 66720 James Guzman [facility] CPT-46257 [facility] 15:30:43 CDT Est Patient Exp Problem - 36687 James Guzman [facility] CPT-34911 [facility] 15:09:34 CDT New Patient Comprehensive - 98403 James Garciatrish [facility] CPT-29895 [facility] Procedures Code Procedure Name Date Entry Date Standard Description CPT-37451 Diagnostic evaluation (no medical) - 65779 08:37:29 G[employer] INSTALLER CPT-56975 INFLUENZA VACCINE QUADRIVALENT 3 YRS PLUS IM 15:22:24 CDT CPT-48531 Influenza - Adult - Injection 12:07:53 CDT CPT-82907 Psychotherapy 45 (38-52*) min - 07403 (with patient and/or family member) 09:52:53 CDT CPT-83631 Psychotherapy 45 (38-52*) min - 29156 (with patient and/or family member) 13:25:05 CDT CPT-91954 Est Patient Intermediate Opth - 55515 16:33:09 CDT CPT-03739 Psychotherapy 45 (38-52*) min - 06051 (with patient and/or family member) 09:03:26 CDT CPT-99744 Diagnostic evaluation (no medical) - 55639 19:54:52 CDT CPT-20689 Diagnostic evaluation with medical - 89252 23:06:21 CDT CPT-67584 Xray - Chest - PA & Lat - InHouse 15:51:40 CDT CPT-96637 Xray - Chest - PA & Lat - InHouse 15:28:53 CDT CPT-98398 Handling of specimen for transfer 15:21:18 CDT CPT-11831 Venipuncture 15:21:18 CDT
[2019-01-23] MEDS ORDERED: ALBUTEROL/IPRATROPIUM 3 ML NEB NEB ONE (21:30)
[2019-01-23] MEDS ORDERED: METHYLPREDNISOLONE SOD SUCC 125 MG/2ML VIAL IV ONE (21:30)
--- NOTE | 2019-01-23 21:56 | Diagnostic Imaging Report ---
EXAMINATION: CXR 2 VIEW - HOPD INDICATION: Difficulty breathing ^[id number] ^[id number] COMPARISON: Chest x-ray 08/22/2018 FINDINGS: PA and lateral views TUBES and LINES: None. LUNGS: Lungs are well inflated. No evidence of air trapping. There is no evidence of pneumonia or pulmonary edema. PLEURA: No pleural effusion or pneumothorax. HEART AND MEDIASTINUM: The cardiomediastinal silhouette is unremarkable.. BONES AND SOFT TISSUES: No focal osseous lesions. Cholecystectomy clips in the right upper quadrant. UPPER ABDOMEN: No free air under the diaphragm. IMPRESSION: No acute thoracic abnormality. Signed by: Dr. Samuel Rendon MD on 01/23/2019 9:53 PM
[2019-01-23] MEDS ORDERED: DEXAMETHASONE SOD PHOS 10 MG/1 ML VIAL IM ONE (22:30)
[2019-01-23] MEDS ORDERED: POTASSIUM CHLORIDE 10MEQ EA PO ONE (23:00)
== END 2019-01-23 23:41 | disposition home or self-care (01) ==
LOC: FSED 21:15
DX: R05 Cough (principal); R06.00 Dyspnea, unspecified; E87.6 Hypokalemia; K52.9 Noninfective gastroenteritis and colitis, unspecified; J20.8 Acute bronchitis due to other specified organisms; B20 Human immunodeficiency virus [HIV] disease; Z91.19 Patient's noncompliance with other medical treatment and regimen; F17.210 Nicotine dependence, cigarettes, uncomplicated
CPT/HCPCS: 71046; 99283; J2930